=== PATIENT | male | born 1990 | race Two or more races ===

== ENCOUNTER 2022-10-04 14:40 | Inpatient (IN) | payer OTHER ==
[2022-10-04 16:18] VITALS: BMI 28.2
[2022-10-04] MEDS ORDERED: NALOXONE HCL 0.4 MG/ML VIAL IM PRN (18:35)
[2022-10-04] MEDS ORDERED: BISMUTH SUBSALICYLATE 524 MG/30 ML PO PRN (18:35)
[2022-10-04] MEDS ORDERED: guaiFENesin 600 MG TABLET.ER (FP) PO PRN (18:35)
[2022-10-04] MEDS ORDERED: DICYCLOMINE HCL 10 MG CAPSULE PO PRN (18:35)
[2022-10-04] MEDS ORDERED: MAGNESIUM HYDROX 2400MG/30ML ORAL SUSPENSION 30 ML CUP PO PRN (18:35)
[2022-10-04] MEDS ORDERED: POLYETHYLENE GLYCOL (HEALTHYLAX) 3350 17 GM PACKET PO PRN (18:35)
[2022-10-04] MEDS ORDERED: BENZONATATE 200 MG CAPSULE PO PRN (18:35)
[2022-10-04] MEDS ORDERED: methaDONE HCL 10 MG TABLET (FOR DETOX USE ONLY) PO ONE (18:35)
[2022-10-04] MEDS ORDERED: IBUPROFEN 400 MG TABLET (FP) PO PRN (18:35)
[2022-10-04] MEDS ORDERED: ACETAMINOPHEN 325 MG TABLET (FP) PO PRN (18:35)
[2022-10-04] MEDS ORDERED: LOPERAMIDE HCL 2 MG CAPSULE PO PRN (18:35)
[2022-10-04] MEDS ORDERED: MAG HYDROX/AL HYDROX/SIMETH 30 ML UNIT-DOSE CUP PO PRN (18:35)
[2022-10-04] MEDS ORDERED: BENZOCAINE/MENTHOL (CHLORASEPTIC ) LOZENGE MM PRN (18:35)
[2022-10-04] MEDS ORDERED: NALOXONE HCL (KLOXXADO) 8 MG SPRAY NS PRN (18:35)
[2022-10-04] MEDS ORDERED: ONDANSETRON *ODT* 4 MG TABLET SL PRN (18:35)
[2022-10-04] MEDS ORDERED: methaDONE HCL 10 MG TABLET (FOR DETOX USE ONLY) ONE (19:14)
[2022-10-04] MEDS: THIAMINE HCL 100 MG TABLET (FP) PO SCH (22:27)
[2022-10-04] MEDS: MELATONIN 5 MG TABLETS PO SCH (22:27)
[2022-10-04] MEDS: IBUPROFEN 600 MG TABLET (FP) PO PRN (22:29)
[2022-10-04] MEDS: METHOCARBAMOL 500 MG TABLET PO PRN (22:29)
[2022-10-05] MEDS: cloNIDine HCL 0.1 MG TABLET PO PRN ×2 (01:27→22:38)
[2022-10-05] MEDS: clonazePAM 0.5 MG ODT TABLETS SL PRN (01:27)
[2022-10-05] MEDS: PRENATAL VITAMINS W/ FOLIC ACID TABLET (FP) PO SCH (10:24)
[2022-10-05] MEDS: THIAMINE HCL 100 MG TABLET (FP) PO SCH (22:38)
[2022-10-05] MEDS: MELATONIN 5 MG TABLETS PO SCH (22:38)
[2022-10-06] MEDS ORDERED: methaDONE HCL 10 MG TABLET (FOR DETOX USE ONLY) PO ONE (10:00)
[2022-10-06] MEDS: PRENATAL VITAMINS W/ FOLIC ACID TABLET (FP) PO SCH (10:04)
[2022-10-06] MEDS: METHOCARBAMOL 500 MG TABLET PO PRN ×2 (10:05→22:32)
[2022-10-06 11:08] LABS: POTASSIUM 3.5 mmol/L (3.5-5.1)
[2022-10-06 11:10] LABS: ALBUMIN 3.1 g/dl (3.4-5.0); BLOOD UREA NITROGEN 7.2 mg/dL (7-18); CALCIUM 8.9 mg/dL (8.5-10.1)
[2022-10-06 11:14] LABS: CREATININE 0.6 mg/dL (0.55-1.3)
[2022-10-06 11:15] LABS: BILIRUBIN,TOTAL 0.7 mg/dL (0.2-1); HEMATOCRIT 30.9 % (35.4-49); HEMOGLOBIN 10.2 GM/dL (11.7-16.9); MCHC 33.2 g/dl (32.0-35.9); MEAN CELL VOLUME 81.4 fl (80-96); MEAN PLT VOLUME 8.9 fl (7.5-11.1); PLATELET COUNT 322 10^3/uL (134-434); RBC 3.79 M/mm3 (4.00-5.60); RDW 12.9 % (11.9-15.9); TOT PROT 6.1 g/dl (6.4-8.2); WHITE BLOOD COUNT 6.7 K/mm3 (4.0-10.0)
[2022-10-06] MEDS: MELATONIN 5 MG TABLETS PO SCH (22:30)
[2022-10-06] MEDS: THIAMINE HCL 100 MG TABLET (FP) PO SCH (22:30)
[2022-10-06] MEDS: clonazePAM 0.5 MG ODT TABLETS SL PRN (22:32)
[2022-10-07] MEDS: clonazePAM 0.5 MG ODT TABLETS SL PRN (10:08)
[2022-10-07] MEDS: METHOCARBAMOL 500 MG TABLET PO PRN ×2 (10:08→22:30)
[2022-10-07] MEDS: PRENATAL VITAMINS W/ FOLIC ACID TABLET (FP) PO SCH (10:25)
[2022-10-07] MEDS ORDERED: PENICILLIN G BENZATHINE 2,400,000 UNIT/4 ML PFS IM ONE (12:20)
[2022-10-07] MEDS ORDERED: hydrOXYzine PAMOATE 25 MG CAPSULE (FP) PO ONE (15:31)
[2022-10-07] MEDS: MELATONIN 5 MG TABLETS PO SCH (22:30)
[2022-10-07] MEDS: THIAMINE HCL 100 MG TABLET (FP) PO SCH (22:30)
[2022-10-08] MEDS ORDERED: methaDONE HCL 10 MG TABLET (FOR DETOX USE ONLY) PO ONE (10:00)
[2022-10-08] MEDS: PRENATAL VITAMINS W/ FOLIC ACID TABLET (FP) PO SCH (10:24)
[2022-10-08] MEDS: IBUPROFEN 600 MG TABLET (FP) PO PRN (10:24)
[2022-10-08] MEDS: METHOCARBAMOL 500 MG TABLET PO PRN ×2 (10:24→22:23)
[2022-10-08] MEDS: THIAMINE HCL 100 MG TABLET (FP) PO SCH (22:23)
[2022-10-08] MEDS: MELATONIN 5 MG TABLETS PO SCH (22:23)
[2022-10-09 06:51] VITALS: RESP 18
[2022-10-09 09:39] VITALS: BP 121/80; PULSE 91; TEMP 97.7
[2022-10-09] MEDS: PRENATAL VITAMINS W/ FOLIC ACID TABLET (FP) PO SCH (10:51)
== END 2022-10-09 11:06 | disposition other institution (70) | DRG 773 ==
LOC: YASAS 14:40 → Y6N 19:17
PROVIDERS: ADMIT Allergy & Immunology; ATTEND Surgery
PROC: HZ2ZZZZ Detoxification Services for Substance Abuse Treatment (ICD-10-PCS; principal; 2022-10-04)
DX: F11.23 Opioid dependence with withdrawal (principal); A53.9 Syphilis, unspecified; Z98.84 Bariatric surgery status; Z98.890 Other specified postprocedural states
CPT/HCPCS: 36415; 80053; 85027; 86593; 86780; 87635; 87811; 93005; 93010